=== PATIENT | female | born 1990 | race Caucasian/White ===

== ENCOUNTER 2018-07-31 11:08 | Inpatient (IN) | payer OTHER ==
[2018-07-31] MEDS ORDERED: Diphenoxylate HCl/Atropine Tablet PO PRN ×2 (11:56)
[2018-07-31] MEDS ORDERED: HYDROcodone/Acetaminophen 5/325 mg Tablet PO PRN ×4 (11:56→12:23)
[2018-07-31] MEDS ORDERED: Ibuprofen 800 MG TAB PO PRN (11:56)
[2018-07-31] MEDS ORDERED: Misoprostol 200 MCG TAB PR PRN (11:56)
[2018-07-31] MEDS ORDERED: Lidocaine 1% (PF) 30 ML VIAL SC PRN (11:56)
[2018-07-31] MEDS ORDERED: NS / Oxytocin 40 units/1000ml 1,000 ML IV PRN (11:56)
[2018-07-31] MEDS ORDERED: Carboprost 250 MCG/ML AMP IM PRN (11:56)
[2018-07-31] MEDS ORDERED: Methylergonovine 0.2 MG/ML VIAL IM PRN ×2 (11:56→12:23)
[2018-07-31 12:13] LABS: Actual Bicarbonate (HCO3a) 24.6 mEq/L (22-28); Base Excess (BEa) -5.8 mEq/L (-2.0 to +3.0)
[2018-07-31 12:16] LABS: pH (Cord, venous) 7.26 (7.32-7.43)
[2018-07-31 12:17] LABS: Actual Bicarbonate (HCO3v) 23 mEq/L (22-28)
[2018-07-31] MEDS ORDERED: Ondansetron PF 4 MG/2 ML Vial IVP PRN (12:23)
[2018-07-31] MEDS ORDERED: Milk Of Magnesia 30 ML UDCUP PO PRN (12:23)
[2018-07-31] MEDS ORDERED: Benzocaine/Menthol 20-0.5% 60 ML CAN TOP PRN (12:23)
[2018-07-31] MEDS ORDERED: Promethazine HCl 25 MG/ML VIAL IM PRN (12:23)
[2018-07-31] MEDS ORDERED: Measles/Mumps/Rubella 10 MCG/0.5 ML VIAL SC ONE (12:23)
[2018-07-31] MEDS ORDERED: Preparation H Ointment 28 GM TUBE PR PRN (12:23)
[2018-07-31] MEDS ORDERED: Adacel (T-DAP) 0.5 ML VIAL IM ONE (12:23)
[2018-07-31] MEDS ORDERED: Lanolin Ointment 7 GM TUBE TOP PRN (12:23)
[2018-07-31] MEDS ORDERED: Varicella virus, LIVE 0.5 ML VIAL SC ONE (12:23)
[2018-07-31] MEDS ORDERED: Misoprostol 200 MCG TAB VAG PRN (12:23)
[2018-07-31] MEDS ORDERED: Bisacodyl 10 MG SUPP PR PRN (12:23)
[2018-07-31] MEDS ORDERED: diphenhydrAMINE 25 MG CAP PO PRN (12:23)
[2018-07-31] MEDS ORDERED: Zolpidem Tartrate 5 MG TAB PO PRN (12:23)
[2018-07-31 12:30] VITALS: BMI 28.8
[2018-07-31] MEDS ORDERED: NS / Oxytocin 40 units/1000ml 1,000 ML IV SCH (12:30)
[2018-07-31 13:49] LABS: Hemoglobin 13.3 g/dL (12.0-16.0); Mean Corpuscular HGB CONC 33.7 g/dL (32.0-36.0); Mean Corpuscular Hemoglobin 29.2 pg (27.0-31.0); Mean Corpuscular Volume 86.4 fL (78.0-98.0); Platelet Count 162 thou/uL (130-400); RBC Distribution Width 11.7 % (11.5-14.5); Red Blood Cell (RBC) Count 4.57 mill/uL (4.20-5.40); White Blood Cell (WBC) Count 14.6 thou/uL (4.8-10.8)
[2018-07-31 14:31] LABS: Syphilis Antibody Nonreactive (Nonreactive); Syphilis Antibody Index 0.04 S/CO (<1.00 Non-Reactive)
[2018-07-31] MEDS: Ibuprofen 800 MG TAB PO SCH ×2 (16:42→21:14)
[2018-07-31] MEDS ORDERED: Acetaminophen 325 MG TAB PO PRN (18:26)
[2018-07-31 18:52] LABS: HBSAg Index 0.23 S/CO (0-0.99); Hep B Surf Ag Non-Reactive S/CO (NonReactive)
[2018-07-31] MEDS: Ferrous Sulfate 325 MG TAB PO SCH (19:24)
[2018-07-31] MEDS: Docusate Calcium (SURFAK) 240 MG CAP PO SCH (21:15)
--- NOTE | 2018-08-01 05:56 | DN ---
DATE OF DELIVERY: 07/31/2018 PREOPERATIVE DIAGNOSIS: Term intrauterine in labor. POSTOPERATIVE DIAGNOSIS: Term intrauterine in labor. PROCEDURE PERFORMED: Normal spontaneous vaginal delivery and repair of a first degree perineal lacer ation. SURGEON: Beto Masters M.D. ANESTHESIA: None, local for repair. BRIEF DELIVERY SUMMARY: This is a 28-year-old G1, now P1 who presented in active labor. Upon presen tation, she was complete, complete and 0 station. She pushed and delivered a live female , theodore LYONS. Mouth and nares were bulb suctioned at the perineum. There was no nuchal cord. Shoulders and body easily followed and the infant was placed on mother's abdomen. Infant Apgars were 8 at 1 minut e and 9 at 5 minutes. Cord blood was collected and sent for analysis. Placenta delivered spontaneou sly and intact with a 3-vessel umbilical cord. There was a first degree perineal laceration, which w as repaired in standard running fashion using 2-0 Vicryl suture under local anesthesia. Mom and baby were left with the nurse in excellent condition, .
[2018-08-01 08:11] VITALS: BP 138/77; TEMP 98.6
[2018-08-01] MEDS: Ferrous Sulfate 325 MG TAB PO SCH (08:34)
[2018-08-01] MEDS: Ibuprofen 800 MG TAB PO SCH (08:34)
[2018-08-01] MEDS ORDERED: Prenatal Vitamin 1 TAB PO SCH (09:00)
[2018-08-01] MEDS: Docusate Calcium (SURFAK) 240 MG CAP PO SCH (10:15)
--- NOTE | 2018-08-01 11:24 | PDOC.PP ---
Post Progress Note Post Day #: 1 Subjective: Doing well. No c/o. Wants to go home. BF well. PO intake tolerated: yes Flatus: yes Ambulation: yes Vital Signs (12 hours) Temp Pulse Resp BP Pulse Ox 08/01/18 08:10 98.6 F 60 16 138/77 99 08/01/18 03:30 98.3 F 49 L 16 115/66 Weight Weight 190 lb - Physical Examination General: NAD Cardiovascular: no m/r/g, RRR Respiratory: clear to auscultation bilaterally, non-labored breathing Abdominal: + bowel sounds, lochia, no distention, appropriately TTP Result Diagrams: 07/31/18 13:41 Additional Labs: Post Labs Blood Type O POSITIVE 07/31/18 13:41 Hep Bs Antigen Non-Reactive S/CO (NonReactive) 07/31/18 13:41 (1) Vaginal delivery Code(s): O80 - ENCOUNTER FOR FULL-TERM UNCOMPLICATED DELIVERY Status: Acute - Assessment/Plan Routine PP care Doing well F/U in 6 weeks
== END 2018-08-01 13:23 | disposition home or self-care (01) | DRG 807 ==
LOC: L&D/OP 11:08 → L&D 12:02 → 3SE 17:04
PROVIDERS: ADMIT Family Medicine; ATTEND Family Medicine
PROC: 10E0XZZ Delivery of Products of Conception, External Approach (ICD-10-PCS; principal; 2018-07-31)
PROC: 0HQ9XZZ Repair Perineum Skin, External Approach (ICD-10-PCS; 2018-07-31)
DX: O70.0 First degree perineal laceration during delivery (principal); Z37.0 Single live birth; Z3A.39 39 weeks gestation of pregnancy
CPT/HCPCS: 36415; 82805; 85027; 86780; 86850; 86900; 86901; 87340; 99285